=== PATIENT | male | born 1985 | race Hispanic/Latino ===

== ENCOUNTER 2016-12-12 19:56 | Emergency (ER) | payer SELFPAY ==
[2016-12-12 20:02] VITALS: BP 158/100; PULSE 87; RESP 20; TEMP 98.1; O2SAT 98
--- NOTE | 2016-12-12 20:37 | C.PDOC ---
History Of Present Illness 31 year old patient presents to the ED complaining of left side mouth pain for the past 2 days. Patient states he had 2 similar episodes in the past 3 months which self resolved. He reports this time the pain is more severe. He took Tramadol and Percocet prior to arrival. Patient denies fever, difficulty breathing, or difficulty swallowing. Time Seen by Provider: 12/12/16 20:04 Chief Complaint (Nursing): Dental Pain History Per: Patient History/Exam Limitations: no limitations Onset/Duration Of Symptoms: Days (2) Current Symptoms Are (Timing): Still Present Severity: Mild Pain Scale Rating Of: 3 Quality: Positive for: "Pain" Recent travel outside of the [place]: No Past Medical History Reviewed: Historical Data, Nursing Documentation, Vital Signs Vital Signs: Last Vital Signs Temp 98.1 F 12/12/16 19:59 Pulse 87 12/12/16 19:59 Resp 20 12/12/16 19:59 BP 158/100 H 12/12/16 19:59 Pulse Ox 98 12/12/16 22:21 Family History: States: Unknown Family Hx - Social History Hx Alcohol Use: Yes Hx Substance Use: Yes - Immunization History Hx Tetanus Toxoid Vaccination: No Hx Influenza Vaccination: No Hx Pneumococcal Vaccination: No Review Of Systems Except As Marked, All Systems Reviewed And Found Negative. Constitutional: Negative for: Fever ENT: Positive for: Mouth Pain (left side). Negative for: Other (difficulty swallowing) Respiratory: Negative for: Other (difficulty breathing) Physical Exam - Physical Exam Appears: Non-toxic, No Acute Distress Skin: Warm, Dry Head: Atraumatic, Normacephalic Eye(s): bilateral: Normal Inspection, EOMI Ear(s): Bilateral: Normal Nose: Normal Oral Mucosa: Moist Tongue: Normal Appearing, No Swelling Lips: Normal Appearing, Other ((-)trismus, (+)mild tenderness to TMJ) Teeth: Caries (multiple) Gingiva: Normal Appearing, No Swelling Throat: Normal, No Erythema, No Exudate Neck: Normal ROM, Supple Lymphatic: Normal Exam Chest: Symmetrical Cardiovascular: Rhythm Regular Respiratory: Normal Breath Sounds, No Accessory Muscle Use Back: Normal Inspection Extremity: Normal ROM Neurological/Psych: Oriented x3 Gait: Steady ED Course And Treatment O2 Sat by Pulse Oximetry: 98 (RA) Pulse Ox Interpretation: Normal Progress Note: Plan: -Lidocaine 2% viscous. -Reassess and disposition. On reassessment, patient is resting comfortably, and is in no acute distress. Discussed TMJ vs toothache, can not localize point tenderness. Multiple caries, will be treated with abx and instructed to follow up with denitsit in 1-2 days. Discussed elevated BP. Pt notes its "always perfect but Im stressing." Return if symptoms worsen/persist. Disposition - Disposition Referrals: [facility] [Outside] Disposition: HOME/ ROUTINE Disposition Time: 20:34 Condition: STABLE Additional Instructions: Follow up with your dentist in 2-5 days for further evaluation. Take medications as prescribed. Return to the emergency department at any time if symptoms persist or worsen. Prescriptions: Amoxicillin 875 mg PO BID #14 tablet Naproxen [Naprosyn] 1 tab PO BID PRN #20 tab PRN Reason: Pain Instructions: Toothache (ED) - Clinical Impression Clinical Impression: Toothache - PA / [employer] / Resident Statement MD/DO has reviewed & agrees with the documentation as recorded. - Scribe Statement The provider has reviewed the documentation as recorded by the Scribe Ashley Keys All medical record entries made by the Scribe were at my direction and personally dictated by me. I have reviewed the chart and agree that the record accurately reflects my personal performance of the history, physical exam, medical decision making, and the department course for this patient. I have also personally directed, reviewed, and agree with the discharge instructions and disposition.
== END 2016-12-12 21:05 | disposition home or self-care (01) ==
LOC: C.ER 19:56
DX: K08.89 Other specified disorders of teeth and supporting structures (principal)

== ENCOUNTER 2017-03-06 05:16 | Emergency (ER) | payer SELFPAY ==
[2017-03-06 05:33] VITALS: O2SAT 98
--- NOTE | 2017-03-06 06:06 | C.PDOC ---
History Of Present Illness 31 year old male who presents to the ER with a complaint of dental pain for the past month. Patient was seen 3 months ago for the same complaint; he states the pain went away 3 months ago when he took amoxicillin. Patient has been taking naproxen multiple times a day with no relief to the pain. Patient states he has not followed up with a dentist because he does not have any insurance. Denies difficulty swallowing, active bleeding, or discharge. Time Seen by Provider: 03/06/17 05:28 Chief Complaint (Nursing): Dental Pain History Per: Patient History/Exam Limitations: no limitations Onset/Duration Of Symptoms: Days Current Symptoms Are (Timing): Still Present Quality: Positive for: Aching Recent travel outside of the [place]: No Past Medical History Reviewed: Historical Data, Nursing Documentation, Vital Signs Vital Signs: Last Vital Signs Temp 98 F 03/06/17 06:25 Pulse 80 03/06/17 06:25 Resp 14 03/06/17 06:25 BP 129/78 03/06/17 06:25 Pulse Ox 98 03/06/17 06:28 - Medical History PMH: No Chronic Diseases Surgical History: No Surg Hx Family History: States: Unknown Family Hx - Social History Hx Alcohol Use: Yes Hx Substance Use: Yes - Immunization History Hx Tetanus Toxoid Vaccination: No Hx Influenza Vaccination: No Hx Pneumococcal Vaccination: No Review Of Systems ENT: Positive for: Mouth Pain. Negative for: Mouth Swelling, Throat Swelling Physical Exam - Physical Exam Appears: Non-toxic Skin: Normal Color, Warm, Dry Head: Atraumatic, Normacephalic Oral Mucosa: Moist Tongue: Normal Appearing, No Swelling Lips: Normal Appearing, No Swelling Teeth: Other (crack left upper posterior molar and incisor) Gingiva: Normal Appearing, No Erythema, No Swelling, No Bleeding Throat: Normal, No Erythema, No Exudate Neck: Normal, Supple Neurological/Psych: Oriented x3, Normal Speech, Normal Cognition ED Course And Treatment O2 Sat by Pulse Oximetry: 98 (Room air) Pulse Ox Interpretation: Normal Progress Note: Amoxicillin administered. Patient's pain has improved; instructed to follow up with dentist. Disposition Counseled Patient/Family Regarding: Diagnosis, Need For Followup, Rx Given - Disposition Disposition: HOME/ ROUTINE Disposition Time: 06:04 Condition: STABLE Additional Instructions: Follow up with Dentist as soon as possible; check out [facility] and [facility] for low cost treatments. Take antibiotics as prescribed. Do not take Aleve more than twice a day. Take one percocet every 4-6 hours for pain if needed; no driving or operating machinery with this medicine. Prescriptions: Amoxicillin 500 mg PO TID #21 tablet oxyCODONE/Acetaminophen [Percocet 5/325 mg Tab] 1 ea PO Q6 #12 tab Instructions: Dental Caries (ED) Forms: General Discharge Instructions - Clinical Impression Clinical Impression: Dental caries, Toothache - Scribe Statement The provider has reviewed the documentation as recorded by the Scriblashell Perez All medical record entries made by the Susaniblashell were at my direction and personally dictated by me. I have reviewed the chart and agree that the record accurately reflects my personal performance of the history, physical exam, medical decision making, and the department course for this patient. I have also personally directed, reviewed, and agree with the discharge instructions and disposition.
[2017-03-06] MEDS ORDERED: Amoxicillin-Clav 500-125 mg Tab PO ONE (06:08)
[2017-03-06 06:26] VITALS: RESP 14
[2017-03-06 06:33] VITALS: BP 128/78; PULSE 78; TEMP 97.9
== END 2017-03-06 06:33 | disposition home or self-care (01) ==
LOC: C.ER 05:16
DX: K02.9 Dental caries, unspecified (principal)